=== PATIENT | female | born 1955 | race Caucasian/White ===

== ENCOUNTER 2017-03-31 19:51 | Emergency (ER) | payer OTHER ==
[~2017-03-31] VITALS: Ht 157.5 cm; Wt 83.6 kg
[~2017-03-31 19:51] MED LIST: AMOXICILLIN500 MG PO; LEVOTHYROXINE75 MCG PO; LISINOPRIL2.5 MG PO; METFORMIN HCL500 MG PO; NAPROSYN500 MG PO; NASONEX17 GM BOTH NARES; NORCO 5/3251 TABLET PO; VALIUM5 MG PO
[2017-03-31 23:46] VITALS: BP 137/85
== END 2017-03-31 23:47 | disposition home or self-care (01) ==
LOC: EME → EDBD 19:51 → EME 23:47
DX: H11.31 Conjunctival hemorrhage, right eye (principal); R51 Headache; S01.101A Unspecified open wound of right eyelid and periocular area, initial encounter; Y00.XXXA Assault by blunt object, initial encounter
CPT/HCPCS: 70450; 99281; 99285

== ENCOUNTER 2017-05-21 13:03 | Emergency (ER) | payer OTHER ==
[~2017-05-21] VITALS: Ht 157.5 cm; Wt 87.2 kg
[2017-05-21] MEDS ORDERED: FIORICET 50-301 EACH PO (15:25)
[2017-05-21 15:48] VITALS: BP 132/68
== END 2017-05-21 15:49 | disposition home or self-care (01) ==
LOC: EME 13:03
DX: H11.31 Conjunctival hemorrhage, right eye (principal); R51 Headache; I10 Essential (primary) hypertension; E11.9 Type 2 diabetes mellitus without complications; Z79.84 Long term (current) use of oral hypoglycemic drugs; Z85.3 Personal history of malignant neoplasm of breast
CPT/HCPCS: 70450; 99281; 99284

== ENCOUNTER 2017-09-17 05:09 | Day surgery (SDC) | payer OTHER ==
[~2017-09-17] VITALS: Ht 157.5 cm; Wt 85.6 kg
[~2017-09-17 05:09] MED LIST changes: +BUSPAR15 MG PO; +CELEXA20 MG PO; +FIORICET 50-301 EACH PO; +FLEXERIL5 MG PO; +LEVOXYL75 MCG PO; +MOBIC15 MG PO; +NEURONTIN600 MG PO; +OXYCONTIN10 MG PO; +PRINIVIL10 MG PO; +WELLBUTRIN75 MG PO; +ZOCOR10 MG PO
[2017-09-17 06:00] VITALS: BP 182/80
[2017-09-17 11:26] VITALS: BP 133/71
[2017-09-17 12:26] VITALS: BP 133/61
[2017-09-17 13:05] VITALS: BP 144/70
== END 2017-09-17 14:25 | disposition home or self-care (01) ==
LOC: SDC 05:09
PROVIDERS: Podiatrist Foot & Ankle Surgery
DX: M21.6X1 Other acquired deformities of right foot (principal); S86.011A Strain of right Achilles tendon, initial encounter; X58.XXXA Exposure to other specified factors, initial encounter; I10 Essential (primary) hypertension; J45.909 Unspecified asthma, uncomplicated; E11.9 Type 2 diabetes mellitus without complications; E03.9 Hypothyroidism, unspecified; Z79.84 Long term (current) use of oral hypoglycemic drugs
CPT/HCPCS: 73630; 76000; 82948; J0131; J0690; J1100; J1170; J1885; J2175; J2250; J2710; J2795; J3010; S0020

== ENCOUNTER 2018-01-05 08:30 | Day surgery (SDC) | payer OTHER ==
[~2018-01-05] VITALS: Ht 157.5 cm; Wt 90.7 kg
== END 2018-01-05 09:55 | disposition home or self-care (01) ==
LOC: PAIN 08:30 → SDC 09:00 → PAIN 09:00
PROVIDERS: Anesthesiology Pain Medicine
DX: M47.816 Spondylosis without myelopathy or radiculopathy, lumbar region (principal); M51.26 Other intervertebral disc displacement, lumbar region; M48.061 Spinal stenosis, lumbar region without neurogenic claudication; E11.9 Type 2 diabetes mellitus without complications; E03.9 Hypothyroidism, unspecified; G89.29 Other chronic pain; E78.5 Hyperlipidemia, unspecified; Z91.048 Other nonmedicinal substance allergy status; Z91.040 Latex allergy status
CPT/HCPCS: 82948; J1030; J2250; S0020

== ENCOUNTER 2018-01-12 12:36 | Day surgery (SDC) | payer OTHER ==
[~2018-01-12] VITALS: Ht 157.5 cm; Wt 90.7 kg
== END 2018-01-12 14:00 | disposition home or self-care (01) ==
LOC: PAIN 12:36 → SDC 13:00 → PAIN 13:00
PROVIDERS: Anesthesiology Pain Medicine
DX: M47.816 Spondylosis without myelopathy or radiculopathy, lumbar region (principal); M48.061 Spinal stenosis, lumbar region without neurogenic claudication; M79.671 Pain in right foot; G89.29 Other chronic pain; I10 Essential (primary) hypertension; F41.8 Other specified anxiety disorders; E03.9 Hypothyroidism, unspecified; E11.9 Type 2 diabetes mellitus without complications; Z79.84 Long term (current) use of oral hypoglycemic drugs; Z85.3 Personal history of malignant neoplasm of breast; Z91.041 Radiographic dye allergy status; Z91.040 Latex allergy status
CPT/HCPCS: 82948; J1030; J2250; S0020

== ENCOUNTER 2018-02-16 08:03 | Day surgery (SDC) | payer OTHER ==
[~2018-02-16] VITALS: Ht 157.5 cm; Wt 90.7 kg
== END 2018-02-16 09:18 | disposition home or self-care (01) ==
LOC: PAIN 08:03 → SDC 08:30 → PAIN 09:18
PROVIDERS: Anesthesiology Pain Medicine
DX: M47.816 Spondylosis without myelopathy or radiculopathy, lumbar region (principal); M51.26 Other intervertebral disc displacement, lumbar region; M48.061 Spinal stenosis, lumbar region without neurogenic claudication; I10 Essential (primary) hypertension; E78.5 Hyperlipidemia, unspecified; E11.9 Type 2 diabetes mellitus without complications; E03.9 Hypothyroidism, unspecified; F41.8 Other specified anxiety disorders; Z79.84 Long term (current) use of oral hypoglycemic drugs; Z79.891 Long term (current) use of opiate analgesic
CPT/HCPCS: 82948; J1030; J2250; S0020

== ENCOUNTER 2018-02-23 08:01 | Day surgery (SDC) | payer OTHER ==
[~2018-02-23] VITALS: Ht 157.5 cm; Wt 90.7 kg
== END 2018-02-23 09:54 | disposition home or self-care (01) ==
LOC: PAIN 08:01 → SDC 08:30 → PAIN 08:30
PROVIDERS: Anesthesiology Pain Medicine
PROC: 3E0T3TZ Introduction of Destructive Agent into Peripheral Nerves and Plexi, Percutaneous Approach (ICD-10-PCS; principal; 2018-02-23)
PROC: BR161ZZ Fluoroscopy of Lumbar Facet Joint(s) using Low Osmolar Contrast (ICD-10-PCS; principal; 2018-02-23)
DX: M47.816 Spondylosis without myelopathy or radiculopathy, lumbar region (principal); M48.061 Spinal stenosis, lumbar region without neurogenic claudication; I10 Essential (primary) hypertension; E03.9 Hypothyroidism, unspecified; E11.9 Type 2 diabetes mellitus without complications; E78.5 Hyperlipidemia, unspecified; Z79.84 Long term (current) use of oral hypoglycemic drugs; Z79.891 Long term (current) use of opiate analgesic; E66.9 Obesity, unspecified; Z68.36 Body mass index [BMI] 36.0-36.9, adult
CPT/HCPCS: 82948; J1030; J1200; J2250; S0020

== ENCOUNTER 2018-03-03 23:28 | Inpatient (IN) | payer OTHER ==
[~2018-03-03] VITALS: Ht 157.5 cm; Wt 94.1 kg
[2018-03-04 00:02] LABS: APPEARANCE CLEAR ((CLEAR)); BILIRUBIN NEGATIVE; BLOOD NEGATIVE; COLOR YELLOW ((YELLOW)); GLUCOSE (STRIP) NEGATIVE; KETONES NEGATIVE; LEUKOCYTES TRACE; NITRITE NEGATIVE; PROTEIN (STRIP) NEGATIVE; SPECIFIC GRAVITY 1.016 (1.000-1.030); UROBILINOGEN 0.2 MG/DL (0.2-1.0)
[2018-03-04 00:06] LABS: BACTERIA NONE SEEN /HPF; EPITHELIAL CELLS RARE /HPF; MUCUS NONE SEEN /LPF; RED BLOOD CELLS 0-5 /HPF (0-5); UCUL ADDED? YES
[2018-03-04 00:17] LABS: HEMATOCRIT 34.5 % (36.0-46.0); HEMOGLOBIN 11.8 G/DL (11.9-15.5); MCHC 34.2 G/DL (30.0-36.0); MCV 90.6 FL (83-99); PLATELET COUNT 255 K/uL (156-360); RBC DIS.WIDTH-CV 12.8 % (11.8-14.6); RED BLOOD COUNT 3.81 M/uL (3.80-5.20); WHITE BLOOD COUNT 16.3 K/uL (4.1-10.2)
[2018-03-04 00:26] LABS: CHLORIDE 102 mEq/L (99-109); POTASSIUM 4.3 mEq/L (3.7-5.4); SODIUM 141 mEq/L (136-147)
[2018-03-04 00:28] LABS: GLUCOSE 110 mg/dL (70-99); TOTAL PROTEIN 6.5 g/dL (6.4-8.3)
[2018-03-04 00:30] LABS: TOTAL BILIRUBIN 0.3 mg/dL (0.0-1.0)
[2018-03-04 00:32] LABS: ALKALINE PHOSPHATASE 98 IU/L (3-129); CREATININE 2.1 mg/dL (0.6-1.3); GFR ESTIMATE (CALCULATED) 26 mL/min/
[2018-03-04 00:33] LABS: UREA NITROGEN (BUN) 47 mg/dL (9-23)
[2018-03-04 00:34] LABS: AST (GOT) 24 IU/L (2-34)
[2018-03-04 00:35] LABS: ALT (GPT) 27 IU/L (3-49)
[2018-03-04] MEDS ORDERED: LISINOPRIL-HCT1 EACH PO (01:56)
[2018-03-04] MEDS ORDERED: GABAPENTIN600 MG PO (01:57)
[2018-03-04] MEDS ORDERED: BUPROPION HCL75 MG PO (01:58)
[2018-03-04] MEDS ORDERED: LEVOTHYROXINE75 MCG PO (01:58)
[2018-03-04] MEDS ORDERED: VALISONE 0.1%15 GM TP (01:58)
[2018-03-04] MEDS ORDERED: OXYCODONE-APAP1 EACH PO (01:58)
[2018-03-04] MEDS ORDERED: ALPRAZOLAM0.25 M2 PO (01:59)
[2018-03-04 03:25] LABS: URIC ACID 9.4 mg/dL (3.1-9.2)
[2018-03-04 04:01] VITALS: BP 135/77
[2018-03-04 07:01] LABS: HEMATOCRIT 32.5 % (36.0-46.0); HEMOGLOBIN 10.4 G/DL (11.9-15.5); MCH 29.2 PG (29.0-34.0); MCV 91.3 FL (83-99); PLATELET COUNT 234 K/uL (156-360); RBC DIS.WIDTH-CV 12.8 % (11.8-14.6); RBC DIS.WIDTH-SD 42.9 % (39-53); RED BLOOD COUNT 3.56 M/uL (3.80-5.20)
[2018-03-04 07:29] VITALS: BP 115/55
[2018-03-04 08:38] LABS: CHLORIDE 109 MEQ/L (99-109); GLUCOSE 119 mg/dL (70-99); POTASSIUM 4.7 MEQ/L (3.7-5.4); SODIUM 141 MEQ/L (136-147); UREA NITROGEN (BUN) 39 mg/dL (9-23)
[2018-03-04 08:41] LABS: CREATININE 1.5 MG/DL (0.6-1.3); GFR ESTIMATE (CALCULATED) 38 mL/min/
[2018-03-04 12:07] VITALS: BP 123/71
[2018-03-04 16:02] VITALS: BP 120/59
[2018-03-04 19:50] VITALS: BP 119/66
[2018-03-05 00:45] VITALS: BP 120/70
[2018-03-05 04:09] VITALS: BP 144/78
[2018-03-05 07:37] VITALS: BP 117/59
[2018-03-05 09:57] LABS: HEMOGLOBIN 10.9 G/DL (11.9-15.5); MCH 29.7 PG (29.0-34.0); MCHC 32.1 G/DL (30.0-36.0); MCV 92.6 FL (83-99); PLATELET COUNT 230 K/uL (156-360); RBC DIS.WIDTH-CV 12.8 % (11.8-14.6); RBC DIS.WIDTH-SD 43.7 % (39-53); RED BLOOD COUNT 3.67 M/uL (3.80-5.20); WHITE BLOOD COUNT 7.1 K/uL (4.1-10.2)
[2018-03-05 10:20] LABS: CHLORIDE 106 MEQ/L (99-109); GFR ESTIMATE (CALCULATED) > 59 mL/min/; GLUCOSE 89 mg/dL (70-99); POTASSIUM 4.8 MEQ/L (3.7-5.4); SODIUM 139 MEQ/L (136-147); UREA NITROGEN (BUN) 23 mg/dL (9-23)
== END 2018-03-05 12:20 | disposition home or self-care (01) | DRG 683 ==
LOC: EME 23:28 → EDOF 03-04 02:50 → 2EASTP 03-04 02:50 → ENRESERV 03-04 02:55 → 2EASTP 03-04 03:44
PROVIDERS: Hospitalist; Internal Medicine
DX: N17.9 Acute kidney failure, unspecified (principal); I10 Essential (primary) hypertension; M19.90 Unspecified osteoarthritis, unspecified site; F32.9 Major depressive disorder, single episode, unspecified; E11.9 Type 2 diabetes mellitus without complications; E03.9 Hypothyroidism, unspecified; E66.1 Drug-induced obesity; Q61.9 Cystic kidney disease, unspecified; Z92.21 Personal history of antineoplastic chemotherapy; Z92.3 Personal history of irradiation; Z85.3 Personal history of malignant neoplasm of breast; Z98.51 Tubal ligation status; Z68.37 Body mass index [BMI] 37.0-37.9, adult
CPT/HCPCS: 74176; 74177; 80048; 80048 91; 80053; 81003; 82436; 82948; 83605; 84133; 84300; 84550; 85025; 85027; 87040; 87086; 99281; 99285; J0696; J1644; J7030